=== PATIENT | male | born 1980 | race Asian ===

== ENCOUNTER 2020-01-05 08:55 | Emergency (ER) | payer OTHER ==
[~2020-01-05] VITALS: Ht 190.5 cm; Wt 81.6 kg
[~2020-01-05 08:55] MED LIST: LEVE250T PO; PHEN100C15 PO
[2020-01-05 09:27] LABS: POTASSIUM 3.5 mmol/L (3.6-5.2)
[2020-01-05 09:48] LABS: PLATELET COUNT 160 K/uL (142-355)
[2020-01-05 11:03] VITALS: BP 105/70; TEMP 98.1
== END 2020-01-05 11:06 ==
LOC: ED 08:58
DX: G40.89 Other seizures (principal); Y63.6 Underdosing and nonadministration of necessary drug, medicament or biological substance
CPT/HCPCS: 36415; 80053; 80156; 80185; 84146; 85027; 96365; 99284; J1165